=== PATIENT | female | born 1980 ===

== ENCOUNTER 2025-02-21 16:40 | Emergency (ER) | payer OTHER, SELFPAY ==
[2025-02-21 16:47] VITALS: BP 122/84; PULSE 94; RESP 16; TEMP 36.6; O2SAT 96; BMI 25.0
--- NOTE | 2025-02-21 17:03 | ED.HA ---
HPI - Headache <Barbara Kang PA-C - Last Filed: 02/21/25 18:57> General Chief Complaint: Headache Stated Complaint: severe migraine since this morning Time Seen by Provider: 02/21/25 17:02 Mode of arrival: Ambulatory History of Present Illness HPI Narrative: Ms. Jacobson is a pleasant 45-year-old female with a past medical history of migraine headaches who presents to the emergency department for breakthrough migraine headache that started this morning. Patient states she typically gets about 3-4 migraines a month however they usually well controlled with Imitrex and Zofran however she attempted to take his medications but threw them up. Patient states that she lives in [place] and ?whenever she comes to [place] she gets a migraine?. She denies any head trauma, blood thinners, precipitating aura. Denies neck pain, fevers, chills, flu-like symptoms, sore throat, sinus pressure, coughing. She does have sensitivity to the light. She describes the migraine headache as pressure across her forehead, this feels identical to prior migraines. She denies any medication allergies or other medical problems. She is here with her daughter. Related Data Allergies Allergy/AdvReac Type Severity Reaction Status Date / Time No Known Drug Allergies Allergy Verified 02/21/25 16:47 Review of Systems <Barbara Kang PA-C - Last Filed: 02/21/25 18:57> Review of Systems ROS Unobtainable: All systems reviewed & are unremarkable except as noted in HPI and below Patient History <Barbara Kang PA-C - Last Filed: 02/21/25 18:57> Social History Smoking Status: Never smoker Smoking Status: Never smoker Exam <Barbara Kang PA-C - Last Filed: 02/21/25 18:57> Narrative Exam Narrative: GENERAL: 45 year old patient appears stated age. Well-developed patient, in no acute distress, however visibly uncomfortable. HEAD: Atraumatic. Normocephalic. EYES: PERRL. Extraocular motions intact. No scleral icterus. No injection or drainage. ENT: Scant cerumen in ear canals, pearly orta TMs visualized. Nose without bleeding, purulent drainage. Throat without erythema, tonsillar hypertrophy or exudate. Uvula midline. Airway patent. NECK: Trachea midline. Cervical ROM intact. CARDIOVASCULAR: Regular rate and rhythm. RESPIRATORY: ?Nonlabored respirations. ?Speaking in clear, full sentences. ?Clear to auscultation. Breath sounds equal bilaterally. No wheezes, rales, or rhonchi. ? NEURO: AOx3. ?Clear speech. ?Moves all 4 extremities appropriately. SKIN: No rash or erythema of visible areas Initial Vital Signs Initial Vital Signs: Vital Signs Temperature 98 F 02/21/25 16:47 Pulse Rate 94 H 02/21/25 16:47 Respiratory Rate 16 02/21/25 16:47 Blood Pressure 122/84 02/21/25 16:47 Pulse Oximetry 96 02/21/25 16:47 Oxygen Delivery Method Room Air 02/21/25 16:47 <Isaac Higgins MD - Last Filed: 02/27/25 07:10> Initial Vital Signs Initial Vital Signs: Vital Signs Temperature 98 F 02/21/25 16:47 Pulse Rate 94 H 02/21/25 16:47 Respiratory Rate 16 02/21/25 16:47 Blood Pressure 122/84 02/21/25 16:47 Pulse Oximetry 96 02/21/25 16:47 Oxygen Delivery Method Room Air 02/21/25 16:47 Course <Barbara Kang PA-C - Last Filed: 02/21/25 18:57> Orders Ordered: Discontinued Medications Dexamethasone (Dexamethasone 10 Mg/Ml Vial) 10 mg IV NOW ONE Stop: 02/21/25 17:10 Last Admin: 02/21/25 17:27 Dose: 10 mg Documented By: GILBERTO Diphenhydramine HCl (Diphenhydramine 50 Mg/Ml Vial) 25 mg IV NOW ONE Stop: 02/21/25 17:10 Last Admin: 02/21/25 17:27 Dose: 25 mg Documented By: GILBERTO Sodium Chloride (Normal Saline 0.9%) 1,000 mls @ 1,000 mls/hr IV BOLUS ONE Stop: 02/21/25 18:08 Last Infusion: 02/21/25 18:24 Dose: Infused Documented By: Admin: 02/21/25 17:30 Dose: 1,000 mls/hr Documented By: GILBERTO Ketorolac Tromethamine (Ketorolac 30 Mg/Ml Vial) 15 mg IV NOW ONE Stop: 02/21/25 17:10 Last Admin: 02/21/25 17:29 Dose: 15 mg Documented By: GILBERTO Prochlorperazine (Prochlorperazine 10 Mg/2 Ml Vial) 10 mg IV NOW ONE Stop: 02/21/25 17:10 Last Admin: 02/21/25 17:36 Dose: 10 mg Documented By: GILBERTO Vital Signs Vital signs: Vital Signs - 8 hr 02/21/25 16:47 02/21/25 18:53 Temperature 98 F Pulse Rate 94 H 95 H Respiratory Rate 16 16 Blood Pressure 122/84 121/73 Pulse Oximetry 96 97 Oxygen Delivery Method Room Air Room Air <Isaac Higgins MD - Last Filed: 02/27/25 07:10> Orders Ordered: Discontinued Medications Dexamethasone (Dexamethasone 10 Mg/Ml Vial) 10 mg IV NOW ONE Stop: 02/21/25 17:10 Last Admin: 02/21/25 17:27 Dose: 10 mg Documented By: GILBERTO Diphenhydramine HCl (Diphenhydramine 50 Mg/Ml Vial) 25 mg IV NOW ONE Stop: 02/21/25 17:10 Last Admin: 02/21/25 17:27 Dose: 25 mg Documented By: GILBERTO Sodium Chloride (Normal Saline 0.9%) 1,000 mls @ 1,000 mls/hr IV BOLUS ONE Stop: 02/21/25 18:08 Last Infusion: 02/21/25 18:24 Dose: Infused Documented By: Admin: 02/21/25 17:30 Dose: 1,000 mls/hr Documented By: GILBERTO Ketorolac Tromethamine (Ketorolac 30 Mg/Ml Vial) 15 mg IV NOW ONE Stop: 02/21/25 17:10 Last Admin: 02/21/25 17:29 Dose: 15 mg Documented By: GILBERTO Prochlorperazine (Prochlorperazine 10 Mg/2 Ml Vial) 10 mg IV NOW ONE Stop: 02/21/25 17:10 Last Admin: 02/21/25 17:36 Dose: 10 mg Documented By: GILBERTO Vital Signs Vital signs: Vital Signs - 8 hr 02/21/25 16:47 02/21/25 18:53 Temperature 98 F Pulse Rate 94 H 95 H Respiratory Rate 16 16 Blood Pressure 122/84 121/73 Pulse Oximetry 96 97 Oxygen Delivery Method Room Air Room Air MDM - Headache <Barbara Kang PA-C - Last Filed: 02/21/25 18:57> Lab Data 02/21/25 17:18 02/21/25 17:18 Labs: Lab Results 02/21/25 Range/Units 17:18 WBC 7.6 (4.5-11.0) X10^3/uL RBC 4.68 (4.0-5.2) X10^6/uL Hgb 14.6 (12.0-16.0) g/dL Hct 42.6 (36-46) % MCV 91.0 (80-100) fL MCH 31.1 (26-34) PG MCHC 34.2 (30-36) % RDW 13.0 (11.6-14.8) % Plt Count 238 (150-400) X10^3/uL Neut % (Auto) 88.3 H (50-75) % Lymph % (Auto) 8.4 L (25-40) % [place] % (Auto) 3.0 (3-14) % Eos % (Auto) 0.1 L (2-4) % Baso % (Auto) 0.2 (0-2) % Neut # (Auto) 6700 (3347-2848) /uL Lymph # (Auto) 600 L (9362-7254) /uL [place] # (Auto) 200 (0-900) /uL Eos # (Auto) 0 (0-450) /uL Baso # (Auto) 0 (0-100) /uL Sodium 140 (137-145) mmol/L Potassium 3.6 (3.4-5.1) mmol/L Chloride 108 H (98-107) mmol/L Carbon Dioxide 21 L (22-32) mmol/L BUN 13 (7-17) mg/dL Creatinine 0.63 (0.52-1.04) mg/dL Estimated GFR > 60 (>60) mL/min BUN/Creatinine Ratio 20.6 (6-22) Glucose 159 H (70-99) mg/dL Calcium 9.0 (8.4-10.2) mg/dL Magnesium 1.6 (1.6-2.3) mg/dL Total Bilirubin 0.6 (0.2-1.3) mg/dL AST 27 (14-36) IU/L ALT 27 (<35) IU/L Alkaline Phosphatase 87 (38-126) U/L Total Protein 7.9 (6.3-8.2) g/dL Albumin 4.8 (3.5-5.0) g/dL Globulin 3.1 (1.7-4.1) g/dL Albumin/Globulin Ratio 1.5 (1.0-2.8) MDM Narrative Medical decision making narrative: 45-year-old female with a past medical history of migraine headaches who presents to the emergency department for breakthrough migraine headache that started this morning. Differential diagnosis includes but isn't limited to tension headache, migraine headache, viral syndrome, etc. On exam patient is in no acute distress, nontoxic appearing, vital signs within normal limits, she is visibly uncomfortable. She has experiencing a frontal migraine headache which feels identical to priors however because of vomiting at home she was unable to keep down her sumatriptan and Zofran. She has no focal neurologic deficits. We will treat with IV fluids, Compazine, Benadryl, Toradol, Decadron. We will obtain baseline labs to rule out electrolyte derangement. Labs reveal normal WBC count 7.6, hemoglobin 14.6 hematocrit 42.6. Platelets 238. Normal sodium 140 potassium 3.6, magnesium 1.6. Slight elevation in glucose. Normal renal function BUN 13 creatinine 0.63. Normal LFTs. After receiving ED treatment, patient's pain is improved significantly, she feels much better, nausea and vomiting has resolved and she is tolerating p.o.. Discussed treatment of breakthrough migraine with her home sumatriptan, [id number] ibuprofen, acetaminophen, prescription for Zofran which she already has. Discussed ER return precautions and PCP follow up. Patient verbalized understanding of all information agreeable with the plan. She is ambulatory for discharge home with her daughter. <Isaac Higgins MD - Last Filed: 02/27/25 07:10> Lab Data Labs: Lab Results 02/21/25 Range/Units 17:18 WBC 7.6 (4.5-11.0) X10^3/uL RBC 4.68 (4.0-5.2) X10^6/uL Hgb 14.6 (12.0-16.0) g/dL Hct 42.6 (36-46) % MCV 91.0 (80-100) fL MCH 31.1 (26-34) PG MCHC 34.2 (30-36) % RDW 13.0 (11.6-14.8) % Plt Count 238 (150-400) X10^3/uL Neut % (Auto) 88.3 H (50-75) % Lymph % (Auto) 8.4 L (25-40) % [place] % (Auto) 3.0 (3-14) % Eos % (Auto) 0.1 L (2-4) % Baso % (Auto) 0.2 (0-2) % Neut # (Auto) 6700 (0974-2011) /uL Lymph # (Auto) 600 L (0792-5926) /uL [place] # (Auto) 200 (0-900) /uL Eos # (Auto) 0 (0-450) /uL Baso # (Auto) 0 (0-100) /uL Sodium 140 (137-145) mmol/L Potassium 3.6 (3.4-5.1) mmol/L Chloride 108 H (98-107) mmol/L Carbon Dioxide 21 L (22-32) mmol/L BUN 13 (7-17) mg/dL Creatinine 0.63 (0.52-1.04) mg/dL Estimated GFR > 60 (>60) mL/min BUN/Creatinine Ratio 20.6 (6-22) Glucose 159 H (70-99) mg/dL Calcium 9.0 (8.4-10.2) mg/dL Magnesium 1.6 (1.6-2.3) mg/dL Total Bilirubin 0.6 (0.2-1.3) mg/dL AST 27 (14-36) IU/L ALT 27 (<35) IU/L Alkaline Phosphatase 87 (38-126) U/L Total Protein 7.9 (6.3-8.2) g/dL Albumin 4.8 (3.5-5.0) g/dL Globulin 3.1 (1.7-4.1) g/dL Albumin/Globulin Ratio 1.5 (1.0-2.8) Discharge Plan Departure Patient Disposition: Home Clinical Impression: Migraine Qualifiers: Migraine type: unspecified Status migrainosus presence: without status migrainosus Intractability: not intractable Qualified Code(s): G43.909 - Migraine, unspecified, not intractable, without status migrainosus Instructions: DI for Migraine Activity Restrictions/Additional Instructions: Dear Ms. Jacobson, Thank you for coming to the emergency department. I am sorry that you are dealing with a severe migraine today. I am glad that you are feeling better. Today you received a migraine ?cocktail? which is a combination of IV medications to help with the migraine. I would like you to take ibuprofen/naproxen and Tylenol and Zofran and your sumatriptan if needed for breakthrough or return of headache. Please rest, hydrate, follow up with your primary care doctor and return to the ER if you develop any new or worsening symptoms. I do recommend having an A1c checked by your primary care doctor as we discussed your blood glucose was just slightly elevated today. Please follow up with your primary care doctor within the next 2-3 days for ER follow-up. (If you do not have a PCP you can call [phone]. ?to schedule an appointment with an [facility] Primary Care Provider) IF YOU DEVELOP ANY NEW OR WORSENING SYMPTOMS, RETURN TO THE ER! Please read the attached instructions, they highlight more specific treatments and interventions for you at home. Thank you for letting me participate in your care, Barbara Kang PA-C Stand Alone Forms: Patient Portal/API ED Sign-out <Isaac Higgins MD - Last Filed: 02/27/25 07:10> [facility] Att[facility]: I was immediately available in the department for consultation. ?This documentation has been reviewed and I agree with assessment and plan. Supervised by Isaac Higgins MD
[2025-02-21 17:26] LABS: Add Manual Diff / Slide Review NO; Hematocrit 42.6 % (36-46); Hemoglobin 14.6 g/dL (12.0-16.0); Lymphocytes Absolute Auto 600 /uL (1100-4500); Mean Corpuscular HGB Conc 34.2 % (30-36); Mean Corpuscular Hemoglobin 31.1 PG (26-34); Mean Corpuscular Volume 91.0 fL (80-100); Platelet Count 238 X10^3/uL (150-400)
[2025-02-21] MEDS: diphenhydrAMINE 50 MG/ML VIAL 25 MG IV (17:27)
[2025-02-21] MEDS: KETOROLAC 30 MG/ML VIAL 15 MG IV (17:29)
[2025-02-21] MEDS: SODIUM CHLORIDE 0.9% 1,000 ML 1000 ML IV (17:30)
[2025-02-21] MEDS: PROCHLORPERAZINE 10 MG/2 ML VIAL IV (17:36)
[2025-02-21 17:48] LABS: Alanine Aminotransferase 27 IU/L (<35); Albumin 4.8 g/dL (3.5-5.0); Albumin Globulin Ratio 1.5 (1.0-2.8); Alkaline Phosphatase 87 U/L (38-126); Blood Urea Nitrogen 13 mg/dL (7-17); Calcium 9.0 mg/dL (8.4-10.2); Carbon Dioxide 21 mmol/L (22-32); Chloride 108 mmol/L (98-107); Estimated Glomerular Filt Rate > 60 mL/min (>60); Globulin 3.1 g/dL (1.7-4.1); Glucose 159 mg/dL (70-99); HEMOLYSIS < 15 (0-50); Magnesium 1.6 mg/dL (1.6-2.3); Potassium 3.6 mmol/L (3.4-5.1); Sodium 140 mmol/L (137-145); Total Protein 7.9 g/dL (6.3-8.2)
[2025-02-21 18:53] VITALS: BP 121/73; PULSE 95; RESP 16; O2SAT 97
== END 2025-02-21 18:53 | disposition home or self-care (01) ==
PROVIDERS: Emergency Provider Physician Assistant
DX: G43.909 Migraine, unspecified, not intractable, without status migrainosus (principal)
CPT/HCPCS: 36415; 80053; 83735; 85025; 96361; 96374; 96375; 99284; J0780; J1100; J1200; J1885; J7030